=== PATIENT | male | born 1975 | race African-American/Black ===

== ENCOUNTER 2017-06-12 08:03 | Emergency (ER) | payer SELFPAY ==
[~2017-06-12] VITALS: Ht 205.7 cm; Wt 107.0 kg
[2017-06-12 08:04] VITALS: BP 170/116; PULSE 112; RESP 16; TEMP 99.7; O2SAT 97
[2017-06-12] MEDS ORDERED: blood pressure med (08:30)
[2017-06-12] MEDS ORDERED: DEXAMETHASONE SOD PHOS 4 MG/ML VIAL IM ONE (08:30)
[2017-06-12] MEDS ORDERED: KETOROLAC TROMETHAMINE 60 MG/2 ML (IM) VIAL IM ONE (08:30)
[2017-06-12] MEDS ORDERED: METF1000 PO (08:30)
[2017-06-12] MEDS ORDERED: AMOX250S2 PO (08:46)
[2017-06-12] MEDS ORDERED: CART120C PO ×2 (08:46→08:49)
--- NOTE | 2017-06-12 08:50 | PD ---
HPI Chief Complaint: ENT Complaint Time Seen by Provider: 08:28 Travel History International Travel<30 days: No Contact w/Intl Traveler<30days: No Traveled to known affect area: No History of Present Illness HPI 42-year-old male presents to the emergency department for evaluation of sore throat that started yesterday. Patient rates pain 10 out of 10, aching and throbbing. Patient denies any fevers. His temperature is 99.7 in triage. Patient reports difficulty swallowing due to pain. Patient reports history of hypertension and diabetes. He is on metformin and Cartia. He states that he is out of his Cartia and needs a refill. The patient states that he cannot swallow medications. This is a chronic issue and not new. Patient denies any other symptoms. He denies any cough or congestion. No nausea, vomiting, diarrhea. No abdominal pain. Moderate severity. PFSH Past Medical History Diabetes: Yes Patient Takes Glucophage: Yes Hypertension: Yes Social History Alcohol Use: Yes Tobacco Use: Yes Substance Use: No Allergies-Medications (Allergen,Severity, Reaction): Coded Allergies: No Known Allergies (Unverified , 06/12/17) Reported Meds & Prescriptions Reported Meds & Active Scripts Active Reported [blood pressure med] 240 Mg Metformin (Metformin HCl) 1,000 Mg Tab 1,000 Mg PO BIDPC Review of Systems Except as stated in HPI: all other systems reviewed are Neg Physical Exam Narrative GENERAL: Well-nourished, well-developed male patient, afebrile. SKIN: Focused skin assessment warm/dry. HEAD: Normocephalic. Atraumatic. No facial swelling. No Hero angina. ENT: Mucosa pink and moist. Tonsils are difficult to visualize due to large tongue. The uvula is midline. Bilateral Tonsils appear to be 2-3+ with exudates.. No uvular edema. No uvular, palatal, or tonsillar deviation. Airway patent. Nasal turbinates appear normal without nasal blood, purulent drainage or septal hematoma. Bilateral tympanic membranes are clear without erythema or perforation. EYES: No scleral icterus. No injection or drainage. NECK: Supple, trachea midline. No JVD or lymphadenopathy. CARDIOVASCULAR: Regular rate and rhythm without murmurs, gallops, or rubs. RESPIRATORY: Breath sounds equal bilaterally. No accessory muscle use. Lungs sounds are clear to auscultation. GASTROINTESTINAL: Abdomen soft, non-tender, nondistended. MUSCULOSKELETAL: No cyanosis, or edema. BACK: Nontender without obvious deformity. No CVA tenderness. Data Data Last Documented VS Vital Signs Date Time Temp Pulse Resp B/P (MAP) Pulse Ox O2 Delivery O2 Flow Rate FiO2 06/12/17 08:04 99.7 112 16 170/116 (134) 97 Orders Orders Ketorolac Inj (Toradol Inj) (06/12/17 08:30) Dexamethasone Inj (Decadron Inj) (06/12/17 08:30) MDM Medical Decision Making Medical Screen Exam Complete: Yes Emergency Medical Condition: Yes Medical Record Reviewed: Yes Differential Diagnosis Strep pharyngitis versus mononucleosis versus URI versus viral pharyngitis Narrative Course 42-year-old male presents to the emergency department for evaluation of sore throat that started yesterday. Patient states his blood sugars are well- controlled. He is given dexamethasone 8 mg IM, Toradol 60 mg IM for pain and swelling. Patient will be discharged with a prescription for amoxicillin. He will also be given a short-term refill of his Cartia. He is to return for any acute worsening of symptoms. He verbalizes agreement and understanding. The patient was discharged in stable condition with instructions, including return instructions and follow up instructions. Diagnosis Primary Impression: Exudative pharyngitis Additional Impression: Hypertension Qualified Codes: I10 - Essential (primary) hypertension Referrals: Primary Care Physician call for appointment Patient Instructions: Chronic Hypertension (ED), General Instructions, Pharyngitis (ED) Additional Instructions: Take antibiotic as directed until gone. Warm salt water gargles. Over the counter Tylenol every 4 hours as needed for pain/fever. Over-the- counter ibuprofen every 6-8 hours as needed for pain/fever. I have given you a short-term refill of your Cartia. Follow-up with your primary care physician for further refills. Follow-up with your primary care physician. Return to the emergency department for any acute worsening of symptoms. Med/Other Pt SpecificInfo: Prescription(s) given Scripts Diltiazem ER 24 HR (Cartia Xt) 120 Mg Caper 240 MG PO DAILY for 14 Days, #28 CAP 0 Refills Prov: Heather Farias 06/12/17 Amoxicillin Liq (Amoxicillin Liq) 250 Mg/5 Ml Susp 500 MG PO TID for Infection for 10 Days, ML 0 Refills Prov: Heather Farias 06/12/17 Disposition: 01 DISCHARGE HOME Condition: Stable Heather Farias Jun 12, 2017 08:50
== END 2017-06-12 09:24 | disposition home or self-care (01) ==
LOC: NEPD 08:03
DX: J02.9 Acute pharyngitis, unspecified (principal); I10 Essential (primary) hypertension; E11.9 Type 2 diabetes mellitus without complications; Z72.0 Tobacco use; Z79.84 Long term (current) use of oral hypoglycemic drugs
CPT/HCPCS: 96372; 99284; J1100; J1885